=== PATIENT | female | born 1950 | race Caucasian/White ===

== ENCOUNTER 2017-10-21 14:53 | Emergency (ER) | payer MEDICARE, OTHER ==
[2017-10-21] MEDS: DIAZEPAM 5 MG TAB PO (15:20)
[2017-10-21] MEDS: HYDROCODONE/APAP (10/325) TAB PO (15:20)
[2017-10-21] MEDS: METHYLPREDNISOLONE 125 MG INJ IM (16:44)
== END 2017-10-21 17:15 | disposition home or self-care (01) ==
LOC: E/R 14:53
DX: M25.551 Pain in right hip (principal)
CPT/HCPCS: 73510; 96374; 99284-25